=== PATIENT | female | born 1975 | race Caucasian/White ===

== ENCOUNTER 2018-01-28 19:44 | Emergency (ER) | payer OTHER ==
--- OUTSIDE RECORDS SUMMARY | 2018-01-28 19:55 | XMS REPORT ---
:1975 External Reference #:[id number] Author Organization [facility] Address [address] [place] [address] Phone [phone] Care Team Providers Name Role Phone Dominic Cain M.D. Care Team Information Content Strategist Unavailable Payers Type Date Identification Numbers Payment Provider Subscriber Commercial Policy Number: [id number] [employer] 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[employer] ETOH Use Rarely consumes alcohol Smoking 01/12/2018 Patient has never smoked Recreational Drug Use Denies Drug Use Daily Caffeine Consumes on average 1 cup of regular coffee per day Tattoo/Piercing Tattoo Sun Exposure 03/05/2015 Uses greater than 30 SPF Seat Belt/Car Seat Always uses seat belt Smoke Alarms Yes Smoke Alarms Carbon Monoxide Detector: Yes Allergies, Adverse Reactions, Alerts Date Description Reaction Status Severity Comments 08/13/2014 NKDA active Medications Medication Date Status Form Strength Qnty SIG Indications Ordering Provider Azithromycin 01/11 Active Tablets 250mg 6tabs Take two pills the first day and one pill every day after. Prednisone 01/11 Active Tablets 20mg 10tab Take 2 s tablets by mouth daily for 5 days Ventolin HFA 01/11 Active Aerosol 108(90Bas 1unit Inhale 2 e) s puffs into mcg/Act the lungs every 6 (six) hours as needed for Wheezing Xarelto 01/11 Active Tablets 15mg 42tab Take 1 s tablet by mouth Two Times Daily Ibuprofen 200 Active Tablets 200mg Take 600 mg Unknown /0000 by mouth every 6 (six) hours as needed for Pain Ciprofloxacin 03/25 Hx Tablets 500mg 10tab one tablet R19.7 Cain, s twice a day Dominic - for five Kalani Spencer Please Excuse 03/25 Hx due to R19.7 Cain, From Work For infectious Dominic 48 Hours. - diarrhea. Kalani Spencer 07/10 Xarelto 12/19 Hx Tablets 20mg 30tab take 1 I82.401 Cain, s tablet by Dominic - mouth daily Kalani Spencer 07/10 with food for blood clot in a deep vein May Return To 08/31 Hx no lifting 453.40 Ant, Work. >15 pounds. Dominic - light duty Kalani Spencer 03/25 until 03/06/15. Anusol-HC 08/16 Hx Suppository 25mg 30uni [address] of 569.3 ts rectum Lula Barth - three times PAEDIATRIC THORACIC PHYSICIAN-C 01/12 a day as needed Please Excuse 08/13 Hx 453.40 Cain, From Work Until Dominic 09/03/14. - Kalani Spencer 08/14 Coumadin 08/10 Hx Tablets 2mg 90tab 3 tablets 453.40 Cain, s by mouth Dominic - daily for Kalani Spencer 01/04 Colace 08/10 Hx Capsules 100mg 60cap 1 by mouth Cain, s twice a day Dominic Spencer M.D. 01/12 Hydrocodone Hx Tablets 5-300mg as needed Unknown Bitartrate/Acet /0000 aminophen - 08/31 Iron Hx Tablets 325(65Fe) 1 by mouth Unknown /0000 mg every day - 01/12 Pre-Casper Hx Tablets 1 by mouth Unknown Formula /0000 every day - 01/04 Aspirin Low 00 Hx Tablets 81mg Unknown Dose /0000 - 01/12 Vital Signs Date Vital Result Comment 01/12/2018 Weight 266.00 lb BP Systolic 110 mmHg BP Diastolic 60 mmHg Body Temperature 98.0 F Height 65 inches 5'5" BMI (Body Mass Index) 44.3 kg/m2 03/25/2015 Weight 245.00 lb BP Systolic 138 mmHg BP Diastolic 88 mmHg Body Temperature 98.0 F Height 65 inches 5'5" BMI (Body Mass Index) 40.8 kg/m2 01/04/2015 Weight 230.00 lb BP Systolic 126 mmHg BP Diastolic 80 mmHg Body Temperature 98.3 F Height 65 inches 5'5" BMI (Body Mass Index) 38.3 kg/m2 10/31/2014 Weight 208.00 lb BP Systolic 130 mmHg BP Diastolic 70 mmHg Body Temperature 98.5 F Height 65 inches 5'5" BMI (Body Mass Index) 34.6 kg/m2 09/24/2014 Weight 197.00 lb BP Systolic 110 mmHg BP Diastolic 70 mmHg Body Temperature 98.0 F Height 65 inches 5'5" BMI (Body Mass Index) 32.8 kg/m2 08/31/2014 Weight 193.00 lb BP Systolic 100 mmHg BP Diastolic 68 mmHg Body Temperature 98.1 F Height 65 inches 5'5" BMI (Body Mass Index) 32.1 kg/m2 08/16/2014 Weight 198.50 lb BP Systolic 92 mmHg BP Diastolic 70 mmHg Body Temperature 97.5 F Height 65 inches 5'5" Heart Rate 76 /min BMI (Body Mass Index) 33.0 kg/m2 4 Parity 3 08/13/2014 Weight 198.00 lb BP Systolic 124 mmHg BP Diastolic 80 mmHg Body Temperature 97.8 F Height 65 inches 5'5" BMI (Body Mass Index) 32.9 kg/m2 Results Test Date Test Result H/L Range Note Urinalysis 11/27/2016 Color YELLOW Appearance CLOUDY Spec Grav Urine 1.020 (1.003-1.030) PH Urine 6.5 (5.0-7.5) Leuk Esterase NEGATIVE (Neg) Nitrite Urine POSITIVE (Neg) Protein Urine NEGATIVE (Neg) Glucose Urine NEGATIVE (Neg) Ketone Urine NEGATIVE (Neg) Urobilinogen 1.0 mg/dL (0-1.0) Bilirubin Urine NEGATIVE (Neg) Blood/HGB Urine NEGATIVE (Neg) Urine Micro Only 11/27/2016 Urine WBC 0-2 [HPF] (0-5) Urine RBC 0-2 [HPF] (0-2) Epithelial Cells 2+ [HPF] Bacteria 4+ [HPF] CBC With Diff 11/27/2016 WBC 9.9 10*3/uL (4.1-11.0) RBC 5.34 10*6/uL (4.00-5.40) HGB 14.5 g/dL (12.0-16.0) HCT 44.4 % (36.0-47.0) MCV 83.1 fL (80.0-95.0) MCH 27.1 pg (27.0-32.0) MCHC 32.6 g/dL (32.0-36.0) RDW 13.7 % (10.5-14.5) PLT 222 10*3/uL (150-450) MPV 9.6 fL (7.1-10.7) Neut % 58.8 % (35.0-75.0) Lymph % 28.4 % (16.0-52.0) [place]bert % 7.5 % (0.0-8.0) Eos % 4.8 % (0.0-5.0) Baso % 0.5 % (0.0-4.0) Neut # 5.8 10*3/uL (1.8-7.7) Lymph # 2.8 10*3/uL (1.2-4.8) [place] # 0.7 10*3/uL (0.0-0.8) Eos # 0.5 10*3/uL (0.0-0.5) Baso # 0.1 10*3/uL (0.0-0.2) Basic Metabolic Panel 11/27/2016 Sodium 142 mmol/L (136-145) Potassium 3.8 mmol/L (3.6-5.2) Chloride 104 mmol/L (100-108) Co2 27 mmol/L (22-31) Anion Gap 11 mmol/L (7-16) Urea Nitrogen 13 mg/dL (7-24) Creatinine 0.88 mg/dL (0.60-1.00) BUN/Creat Ratio 14.8 RATIO (10.0-20.0) Glucose 98 mg/dL (70-99) Calcium 9.2 mg/dL (8.4-10.2) GFR >60 ml/min/1.73m2 (>59) GFR ( Amer) >60 ml/min/1.73m2 (>59) GFR Interpretation <SEE NOTE> 1 Laboratory test finding 11/27/2016 Troponin I <0.06 ng/mL (0.00-0.10) 2 Poc Troponin 11/27/2016 Poc Ctni 0.00 ng/mL (0.00-0.10) 3 Laboratory test finding 07/10/2015 D-Dimer,Sensitive 0.23 mg/L (<0.50) Protime 12/18/2014 PT 15.0 s High (9.2-11.9) Inr 1.44 4 Protime 12/17/2014 PT 16.3 s High (9.2-11.9) 5 Inr 1.52 5, 6 Protime 12/11/2014 PT 11.8 s (9.2-11.9) Inr 1.11 7 Protime 12/03/2014 PT 9.9 s (9.2-11.9) 8 Inr 0.94 8, 9 Protime 11/20/2014 PT 10.9 s (9.2-11.9) Inr 1.03 10 Protime 11/14/2014 PT 72.1 s High (9.2-11.9) 11 Inr 6.55 High 11, 12 Protime 10/31/2014 PT 18.0 s High (9.2-11.9) 13 Inr 1.68 13, 14 Protime 10/17/2014 PT 20.7 s High (9.2-11.9) Inr 1.93 15 Protime 10/01/2014 PT 31.0 s High (9.2-11.9) 16 Inr 2.86 16, 17 Protime 09/17/2014 PT 20.0 s High (9.2-11.9) 18 Inr 1.86 18, 19 Protime 08/31/2014 PT 30.6 s High (9.2-11.9) 20 Inr 2.83 20, 21 Protime 08/27/2014 PT 27.4 s High (9.2-11.9) Inr 2.54 22 Protime 08/20/2014 PT 27.2 s High (9.2-11.9) 23 Inr 2.52 23, 24 Protime 08/16/2014 PT 31.4 s High (9.2-11.9) Inr 2.90 25 CBC With Diff 08/16/2014 WBC 9.3 10*3/uL (4.1-11.0) RBC 4.36 10*6/uL (4.00-5.40) HGB 10.9 g/dL Low (12.0-16.0) HCT 33.8 % Low (36.0-47.0) MCV 77.6 fL Low (80.0-95.0) MCH 24.9 pg Low (27.0-32.0) MCHC 32.1 g/dL (32.0-36.0) RDW 15.5 % High (10.5-14.5) PLT 484 10*3/uL High (150-450) MPV 8.3 fL (7.1-10.7) Neut % 57.1 % (35.0-75.0) Lymph % 29.8 % (16.0-52.0) [place] % 5.5 % (0.0-8.0) Eos % 6.7 % High (0.0-5.0) Baso % 0.9 % (0.0-4.0) Neut # 5.3 10*3/uL (1.8-7.7) Lymph # 2.8 10*3/uL (1.2-4.8) [place] # 0.5 10*3/uL (0.0-0.8) Eos # 0.6 10*3/uL High (0.0-0.5) Baso # 0.1 10*3/uL (0.0-0.2) Protime 08/13/2014 PT 30.7 s High (9.2-11.9) Inr 2.84 26 CMP 08/13/2014 Sodium 141 mmol/L (136-145) Potassium 4.7 mmol/L (3.6-5.2) Chloride 108 mmol/L (100-108) Co2 24 mmol/L (22-31) Anion Gap 9 mmol/L (7-16) Urea Nitrogen 15 mg/dL (7-24) Creatinine 0.8 mg/dL (0.6-1.0) BUN/Creat Ratio 18.8 RATIO (10.0-20.0) Glucose 69 mg/dL Low (70-99) Calcium 8.4 mg/dL (8.4-10.2) Total Protein 6.8 g/dL (6.4-8.2) Albumin 3.1 g/dL Low (3.5-4.6) Globulin 3.7 g/dL (2.7-4.3) Alb/Glob Ratio 0.8 RATIO Alkaline Phosphatase 394 U/L High (45-117) Bilirubin,Total 0.3 mg/dL (0.0-1.0) Ast (Sgot) 18 U/L (11-39) Alt (SGPT) 56 U/L (12-78) GFR 86 ml/min/1.73m2 (>59) GFR ( Amer) >90 ml/min/1.73m2 (>59) GFR Interpretation <SEE NOTE> 27 CBC With Diff 08/13/2014 WBC 10.5 10*3/uL (4.1-11.0) RBC 4.05 10*6/uL (4.00-5.40) HGB 10.3 g/dL Low (12.0-16.0) HCT 32.2 % Low (36.0-47.0) MCV 79.5 fL Low (80.0-95.0) MCH 25.6 pg Low (27.0-32.0) MCHC 32.2 g/dL (32.0-36.0) RDW 15.1 % High (10.5-14.5) PLT 437 10*3/uL (150-450) MPV 8.5 fL (7.1-10.7) Neut % 66.7 % (35.0-75.0) Lymph % 20.9 % (16.0-52.0) [place] % 5.8 % (0.0-8.0) Eos % 5.9 % High (0.0-5.0) Baso % 0.7 % (0.0-4.0) Neut # 7.0 10*3/uL (1.8-7.7) Lymph # 2.2 10*3/uL (1.2-4.8) [place] # 0.6 10*3/uL (0.0-0.8) Eos # 0.6 10*3/uL High (0.0-0.5) Baso # 0.1 10*3/uL (0.0-0.2) Protime 08/10/2014 PT 24.1 s High (9.2-11.9) Inr 2.24 28 1 NORMAL KIDNEY FUNCTION OR MILD DISEASE - GFR >OR=60 CHRONIC KIDNEY DISEASE - GFR 15 - 59 RENAL FAILURE - GFR <15 Est. GFR calculation based on the MDRD study equation, which assumes a steady state for creatinine. Est. GFR should not be used for medication dosing. 2 TROPONIN LEVELS TWO TIMES THE UPPER LIMIT OF NORMAL ARE MORE PREDICTIVE OF MYOCARDIAL INJURY THAN LESSER ELEVATIONS. ([facility] 361:9, 2009) 3 PERFORMED BY [facility] CLINICAL STAFF 4 SUGGESTED THERAPEUTIC RANGES USING INR FOR STABILIZED ANTICOAGULATED PATIENTS: STANDARD DOSE THERAPY INR 2.0-3.0 DVT, PE, PREVENT DVT OR EMBOLISM HIGH DOSE THERAPY INR 2.5-3.5 PREVENT EMBOLISM FROM MECHANICAL HEART VALVE 5 results given to patient. sent to [facility] ER for anticoagulation. worsening leg edema. records faxed to er. call to [facility] transfer service. 6 SUGGESTED THERAPEUTIC RANGES USING INR FOR STABILIZED ANTICOAGULATED PATIENTS: STANDARD DOSE THERAPY INR 2.0-3.0 DVT, PE, PREVENT DVT OR EMBOLISM HIGH DOSE THERAPY INR 2.5-3.5 PREVENT EMBOLISM FROM MECHANICAL HEART VALVE 7 SUGGESTED THERAPEUTIC RANGES USING INR FOR STABILIZED ANTICOAGULATED PATIENTS: STANDARD DOSE THERAPY INR 2.0-3.0 DVT, PE, PREVENT DVT OR EMBOLISM HIGH DOSE THERAPY INR 2.5-3.5 PREVENT EMBOLISM FROM MECHANICAL HEART VALVE 8 results given - inr low increased from 2mg to 6 mg qday. recheck one week. 9 SUGGESTED THERAPEUTIC RANGES USING INR FOR STABILIZED ANTICOAGULATED PATIENTS: STANDARD DOSE THERAPY INR 2.0-3.0 DVT, PE, PREVENT DVT OR EMBOLISM HIGH DOSE THERAPY INR 2.5-3.5 PREVENT EMBOLISM FROM MECHANICAL HEART VALVE 10 SUGGESTED THERAPEUTIC RANGES USING INR FOR STABILIZED ANTICOAGULATED PATIENTS: STANDARD DOSE THERAPY INR 2.0-3.0 DVT, PE, PREVENT DVT OR EMBOLISM HIGH DOSE THERAPY INR 2.5-3.5 PREVENT EMBOLISM FROM MECHANICAL HEART VALVE 11 called patient darryl harrell regarding INR. asked her to stop medication. and call back the office. 12 SUGGESTED THERAPEUTIC RANGES USING INR FOR STABILIZED ANTICOAGULATED PATIENTS: STANDARD DOSE THERAPY INR 2.0-3.0 DVT, PE, PREVENT DVT OR EMBOLISM HIGH DOSE THERAPY INR 2.5-3.5 PREVENT EMBOLISM FROM MECHANICAL HEART VALVE RESULT VERIFIED BY REPEAT TESTING. RESULT(S) CALLED TO AND READ BACK BY AUDREY AT [phone] ON 11/14/14 AT 1520 [place] [id number] 13 called left vm. will need to increase coumadin. 14 SUGGESTED THERAPEUTIC RANGES USING INR FOR STABILIZED ANTICOAGULATED PATIENTS: STANDARD DOSE THERAPY INR 2.0-3.0 DVT, PE, PREVENT DVT OR EMBOLISM HIGH DOSE THERAPY INR 2.5-3.5 PREVENT EMBOLISM FROM MECHANICAL HEART VALVE 15 SUGGESTED THERAPEUTIC RANGES USING INR FOR STABILIZED ANTICOAGULATED PATIENTS: STANDARD DOSE THERAPY INR 2.0-3.0 DVT, PE, PREVENT DVT OR EMBOLISM HIGH DOSE THERAPY INR 2.5-3.5 PREVENT EMBOLISM FROM MECHANICAL HEART VALVE 16 attempted to call. no answer left message. 17 SUGGESTED THERAPEUTIC RANGES USING INR FOR STABILIZED ANTICOAGULATED PATIENTS: STANDARD DOSE THERAPY INR 2.0-3.0 DVT, PE, PREVENT DVT OR EMBOLISM HIGH DOSE THERAPY INR 2.5-3.5 PREVENT EMBOLISM FROM MECHANICAL HEART VALVE 18 called cell, darryl harrell. increase coumadin. 19 SUGGESTED THERAPEUTIC RANGES USING INR FOR STABILIZED ANTICOAGULATED PATIENTS: STANDARD DOSE THERAPY INR 2.0-3.0 DVT, PE, PREVENT DVT OR EMBOLISM HIGH DOSE THERAPY INR 2.5-3.5 PREVENT EMBOLISM FROM MECHANICAL HEART VALVE 20 Patient told results were normal. 21 SUGGESTED THERAPEUTIC RANGES USING INR FOR STABILIZED ANTICOAGULATED PATIENTS: STANDARD DOSE THERAPY INR 2.0-3.0 DVT, PE, PREVENT DVT OR EMBOLISM HIGH DOSE THERAPY INR 2.5-3.5 PREVENT EMBOLISM FROM MECHANICAL HEART VALVE 22 SUGGESTED THERAPEUTIC RANGES USING INR FOR STABILIZED ANTICOAGULATED PATIENTS: STANDARD DOSE THERAPY INR 2.0-3.0 DVT, PE, PREVENT DVT OR EMBOLISM HIGH DOSE THERAPY INR 2.5-3.5 PREVENT EMBOLISM FROM MECHANICAL HEART VALVE 23 results given to patient. no signs of bleeding. 24 SUGGESTED THERAPEUTIC RANGES USING INR FOR STABILIZED ANTICOAGULATED PATIENTS: STANDARD DOSE THERAPY INR 2.0-3.0 DVT, PE, PREVENT DVT OR EMBOLISM HIGH DOSE THERAPY INR 2.5-3.5 PREVENT EMBOLISM FROM MECHANICAL HEART VALVE 25 SUGGESTED THERAPEUTIC RANGES USING INR FOR STABILIZED ANTICOAGULATED PATIENTS: STANDARD DOSE THERAPY INR 2.0-3.0 DVT, PE, PREVENT DVT OR EMBOLISM HIGH DOSE THERAPY INR 2.5-3.5 PREVENT EMBOLISM FROM MECHANICAL HEART VALVE 26 SUGGESTED THERAPEUTIC RANGES USING INR FOR STABILIZED ANTICOAGULATED PATIENTS: STANDARD DOSE THERAPY INR 2.0-3.0 DVT, PE, PREVENT DVT OR EMBOLISM HIGH DOSE THERAPY INR 2.5-3.5 PREVENT EMBOLISM FROM MECHANICAL HEART VALVE 27 NORMAL KIDNEY FUNCTION OR MILD DISEASE - GFR >OR=60 CHRONIC KIDNEY DISEASE - GFR 15 - 59 RENAL FAILURE - GFR <15 Est. GFR calculation based on the MDRD study equation, which assumes a steady state for creatinine. Est. GFR should not be used for medication dosing. 28 SUGGESTED THERAPEUTIC RANGES USING INR FOR STABILIZED ANTICOAGULATED PATIENTS: STANDARD DOSE THERAPY INR 2.0-3.0 DVT, PE, PREVENT DVT OR EMBOLISM HIGH DOSE THERAPY INR 2.5-3.5 PREVENT EMBOLISM FROM MECHANICAL HEART VALVE Procedures Date CPT Code Description Status 01/12/2018 Mammogram Completed Encounters Type Date Location Provider CPT E/M Dx Office Visit 01/12/2018 4:30p Main Office ELKIN Gregg 93585 I82.401 J15.8 E66.9 I87.2 Office Visit 03/25/2015 3:00p Main Office [place] 33602 R19.7 I82.402 Office Visit 01/04/2015 10:10a Main Office Vonnie Ortez MPA 88968 453.40 Office Visit 10/31/2014 4:00p Main Office Vonnie Ortez MPA 93569 453.40 Office Visit 09/24/2014 2:30p Main Office Vonnie Ortez MPA 82158 453.40 Office Visit 08/31/2014 11:00a Main Office Vonnie Ortez MPA 56543 453.40 Office Visit 08/13/2014 10:30a Main Office Vonnie Ortez MPA 04653 453.40 Plan of Care Future Appointment(s):01/24/2018 3:00 pm - Vonnie Ortez MPA at Main [facility]01/12/2018 - Alana Lazo Emrejesse, PAI82.401 Acute embolism and thombos unsp deep veins of r low extremComments:on the 01 of February we will start xarelto 20mg once daily.J15.8 Pneumonia due to other specified bacteriaFollow up :1-2 weeks.E66.9 Obesity, unspecifiedComments:Please eat a healthy diet and drink plenty of fluids. Exercise for 30 minutes each day. Walking is great, goal is 10,000 steps. Most phones have a pedometer built in. Please only drink water. Eat as many fruits and vegetables as you want. Moderate amount of whole grains. Limit red meat and reduce animal products. The best thing to do is keep a food diary. [employer] App is a free sylvie that is helpful to do this.I87.2 Venous insufficiency (chronic) (peripheral)Comments:Advised to wear compression stocking as she is on her feet at both of her jobs.
--- OUTSIDE RECORDS SUMMARY | 2018-01-28 19:55 | XMS REPORT ---
:1975 External Reference #:[id number] Author Organization [facility] Address [address] [place] [address] Phone [phone] Care Team Providers Name Role Phone Dominic Cain M.D. 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 Family History Date Family Member(s) Problem(s) Comments General No Current Problems Social History Type Date Description Comments Marital Status Legal Status: Lives With Significant Other Lives With Son Lives With Daughters 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 Prednisone 01/11 Hx Tablets 20mg 10tab Take 2 s tablets by - mouth daily 01/24 for 5 days Ciprofloxacin 03/25 Hx Tablets 500mg 10tab one [...] Return To 08/31 Hx no lifting 453.40 Cain, Work. >15 pounds. Dominic - light duty Kalani Spencer 03/25 until 03/06/15. Anusol-HC 08/16 Hx Suppository 25mg 30uni [address] of 569.3 ts rectum Lula B. - three times DIETETIC TECHNICIAN-C 01/12 a day needed Please Excuse 08/13 Hx 453.40 Cain, From Work Until Dominic 09/03/14. - Kalani Spencer 08/14 Coumadin 08/10 Hx Tablets 2mg 90tab 3 tablets 453.40 Cain, s by mouth Dominic - daily asia Spencer M.D. 01/04 Colace 08/10 Hx Capsules 100mg 60cap 1 by mouth Cain, s twice a day Dominic Spencer M.D. 01/12 Hydrocodone Hx Tablets 5-300mg as needed Unknown Bitartrate/Acet /0000 aminophen - 08/31 Iron Hx Tablets 325(65Fe) 1 by mouth Unknown /0000 mg every day - 01/12 Pre- 00/00 Hx Tablets 1 by mouth Unknown Formula /0000 every day - 01/04 Aspirin Low 00 Hx Tablets 81mg Unknown Dose /0000 - 01/12 Ibuprofen 200 0000 Hx Tablets 200mg Take 600 mg Unknown /0000 by mouth - every 6 01/24 (six) hours /2017 as needed for Pain Vital Signs Date Vital Result Comment 01/24/2018 Weight 267.00 lb BP Systolic 110 mmHg BP Diastolic 74 mmHg Body Temperature 98.1 F Height 65 inches 5'5" BMI (Body Mass Index) 44.4 kg/m2 01/12/2018 Weight 266.00 lb BP Systolic 110 [...] Test Date Test Result H/L Range Note Poc Troponin 11/27/2016 Poc Ctni 0.00 ng/mL (0.00-0.10) 1 Laboratory test finding 11/27/2016 Troponin I <0.06 ng/mL (0.00-0.10) 2 Basic Metabolic Panel 11/27/2016 Sodium 142 mmol/L (136-145) Potassium 3.8 mmol/L (3.6-5.2) Chloride 104 mmol/L (100-108) Co2 27 mmol/L (22-31) Anion Gap 11 mmol/L (7-16) Urea Nitrogen 13 mg/dL (7-24) Creatinine 0.88 mg/dL (0.60-1.00) BUN/Creat Ratio 14.8 RATIO (10.0-20.0) Glucose 98 mg/dL (70-99) Calcium 9.2 mg/dL (8.4-10.2) GFR >60 ml/min/1.73m2 (>59) GFR ( Amer) >60 ml/min/1.73m2 (>59) GFR Interpretation <SEE NOTE> 3 CBC With Diff 11/27/2016 WBC 9.9 10*3/uL (4.1-11.0) RBC 5.34 10*6/uL (4.00-5.40) HGB 14.5 g/dL (12.0-16.0) HCT 44.4 % (36.0-47.0) MCV 83.1 fL (80.0-95.0) MCH 27.1 pg (27.0-32.0) MCHC 32.6 g/dL (32.0-36.0) RDW 13.7 % (10.5-14.5) PLT 222 10*3/uL (150-450) MPV 9.6 fL (7.1-10.7) Neut % 58.8 % (35.0-75.0) Lymph % 28.4 % (16.0-52.0) [place] % 7.5 % (0.0-8.0) Eos % 4.8 % (0.0-5.0) Baso % 0.5 % (0.0-4.0) Neut # 5.8 10*3/uL (1.8-7.7) Lymph # 2.8 10*3/uL (1.2-4.8) [place] # 0.7 10*3/uL (0.0-0.8) Eos # 0.5 10*3/uL (0.0-0.5) Baso # 0.1 10*3/uL (0.0-0.2) Urine Micro Only 11/27/2016 Urine WBC 0-2 [HPF] (0-5) Urine RBC 0-2 [HPF] (0-2) Epithelial Cells 2+ [HPF] Bacteria 4+ [HPF] Urinalysis 11/27/2016 Color YELLOW Appearance CLOUDY Spec Grav Urine 1.020 (1.003-1.030) PH Urine 6.5 (5.0-7.5) Leuk Esterase NEGATIVE (Neg) Nitrite Urine POSITIVE (Neg) Protein Urine NEGATIVE (Neg) Glucose Urine NEGATIVE (Neg) Ketone Urine NEGATIVE (Neg) Urobilinogen 1.0 mg/dL (0-1.0) Bilirubin Urine NEGATIVE (Neg) Blood/HGB Urine NEGATIVE (Neg) Laboratory test finding 07/10/2015 D-Dimer,Sensitive 0.23 mg/L [...] % (35.0-75.0) Lymph % 29.8 % (16.0-52.0) [place] % 5.5 % (0.0-8.0) Eos % 6.7 % High (0.0-5.0) Baso % 0.9 % (0.0-4.0) Neut # 5.3 10*3/uL (1.8-7.7) Lymph # 2.8 10*3/uL (1.2-4.8) [place] # 0.5 10*3/uL (0.0-0.8) Eos # 0.6 [...] % (35.0-75.0) Lymph % 20.9 % (16.0-52.0) [place] % 5.8 % (0.0-8.0) Eos % 5.9 % High (0.0-5.0) Baso % 0.7 % (0.0-4.0) Neut # 7.0 10*3/uL (1.8-7.7) Lymph # 2.2 10*3/uL (1.2-4.8) [place] # 0.6 10*3/uL (0.0-0.8) Eos # 0.6 10*3/uL High (0.0-0.5) Baso # 0.1 10*3/uL (0.0-0.2) Protime 08/10/2014 PT 24.1 s High (9.2-11.9) Inr 2.24 28 1 PERFORMED BY [facility] CLINICAL STAFF 2 TROPONIN LEVELS TWO TIMES THE UPPER LIMIT OF NORMAL ARE MORE PREDICTIVE OF MYOCARDIAL INJURY THAN LESSER ELEVATIONS. ([facility] 361:9, 2009) 3 NORMAL KIDNEY FUNCTION OR MILD DISEASE - GFR >OR=60 CHRONIC KIDNEY DISEASE - GFR 15 - 59 RENAL FAILURE - GFR <15 Est. GFR calculation based on the MDRD study equation, which assumes a steady state for creatinine. Est. GFR should not be used for medication dosing. 4 SUGGESTED THERAPEUTIC RANGES USING INR FOR STABILIZED ANTICOAGULATED PATIENTS: STANDARD DOSE THERAPY INR 2.0-3.0 DVT, PE, PREVENT DVT OR EMBOLISM HIGH DOSE THERAPY INR 2.5-3.5 PREVENT EMBOLISM FROM MECHANICAL HEART VALVE 5 results given to patient. sent to [facility] ER for anticoagulation. worsening leg edema. records faxed to er. call to [facility] transfer service. 6 SUGGESTED THERAPEUTIC RANGES USING [...] FROM MECHANICAL HEART VALVE 11 called patient na lm regarding INR. asked her to stop medication. and call back the office. 12 SUGGESTED THERAPEUTIC RANGES USING INR FOR STABILIZED ANTICOAGULATED PATIENTS: STANDARD DOSE THERAPY INR 2.0-3.0 DVT, PE, PREVENT DVT OR EMBOLISM HIGH DOSE THERAPY INR 2.5-3.5 PREVENT EMBOLISM FROM MECHANICAL HEART VALVE RESULT VERIFIED BY REPEAT TESTING. RESULT(S) CALLED TO AND READ BACK BY AUDREY AT [id number] ON 11/14/14 AT 4146 DH [id number] 13 called left vm. will need to [...] EMBOLISM FROM MECHANICAL HEART VALVE 18 called celldarryl lm. increase coumadin. 19 SUGGESTED THERAPEUTIC RANGES USING [...] Location Provider CPT E/M Dx Office Visit 01/24/2018 3:00p Main Office Vonnie Ortez [facility] 27076 J15.8 R19.7 E66.9 Office Visit 01/12/2018 4:30p Main Office ELKIN Gregg 95927 I82.401 J15.8 E66.9 I87.2 Office Visit 03/25/2015 3:00p Main Office Vonnie Ortez, AMANDA 10979 R19.7 I82.402 Office Visit 01/04/2015 10:10a Main Office Vonnie Ortez, AMANDA 00129 453.40 Office Visit 10/31/2014 4:00p Main Office Vonnie Ortez, AMANDA 43048 453.40 Office Visit 09/24/2014 2:30p Main Office Vonnie Ortez, AMANDA 82942 453.40 Office Visit 08/31/2014 11:00a Main Office Vonnie Ortez, AMANDA 71956 453.40 Office Visit 08/13/2014 10:30a Main Office Vonnie Ortez M[place] 86673 453.40 Plan of Care Future Appointment(s):03/21/2018 9:10 am - Nurse Schedule at Main [id number] 3:00 pm - Vonnie Ortez, MPA at Main [id number]/24/2018 - Vonnie Ortez, MPAJ15.8 Pneumonia due to other specified bacteriaNew Xrays:Chest, 2 ViewsMammography Screening, Bilateral; 2-View Each BreastFollow up:set up for pap this fall.R19.7 Diarrhea, unspecifiedNew Labs:Stool Panel ([facility] [place]) E66.9 Obesity, unspecified
--- OUTSIDE RECORDS SUMMARY | 2018-01-28 19:55 | XMS REPORT ---
:1975 External Reference #:[id number] Author Organization Formerly [facility] Address [address] [place] [address] Phone [phone] Care Team Providers Name Role Phone Dominic Cain M.D. 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 Family History Date Family Member(s) Problem(s) Comments General No Current Problems Social History Type Date Description Comments Marital Status Legal Status: Lives With Significant Other Lives With Son Lives With Daughters 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 >15 pounds. Dominic - light duty Kalani Spencer 03/25 until 03/06/15. 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 needed Please Excuse 08/13 [...] /0000 mg every day - 01/12 Pre- Hx Tablets 1 by mouth Unknown Formula /0000 every day - 01/04 Aspirin Low Hx Tablets 81mg Unknown Dose /0000 - 01/12 Vital Signs Date Vital Result Comment 01/24/2018 [...] % (35.0-75.0) Lymph % 28.4 % (16.0-52.0) [place] % 7.5 % (0.0-8.0) Eos % 4.8 % (0.0-5.0) Baso % 0.5 % (0.0-4.0) Neut # 5.8 10*3/uL (1.8-7.7) Lymph # 2.8 10*3/uL (1.2-4.8) [place] # 0.7 10*3/uL (0.0-0.8) Eos # 0.5 [...] % (35.0-75.0) Lymph % 29.8 % (16.0-52.0) [place] % 5.5 % (0.0-8.0) Eos % 6.7 % High (0.0-5.0) Baso % 0.9 % (0.0-4.0) Neut # 5.3 10*3/uL (1.8-7.7) Lymph # 2.8 10*3/uL (1.2-4.8) [place] # 0.5 10*3/uL (0.0-0.8) Eos # 0.6 [...] % (35.0-75.0) Lymph % 20.9 % (16.0-52.0) [place] % 5.8 % (0.0-8.0) Eos % 5.9 % High (0.0-5.0) Baso % 0.7 % (0.0-4.0) Neut # 7.0 10*3/uL (1.8-7.7) Lymph # 2.2 10*3/uL (1.2-4.8) [place] # 0.6 10*3/uL (0.0-0.8) Eos # 0.6 [...] PREDICTIVE OF MYOCARDIAL INJURY THAN LESSER ELEVATIONS. ([facility] 361:9, 2009) 3 PERFORMED BY [facility] CLINICAL STAFF 4 SUGGESTED THERAPEUTIC RANGES USING INR FOR STABILIZED ANTICOAGULATED PATIENTS: STANDARD DOSE THERAPY INR 2.0-3.0 DVT, PE, PREVENT DVT OR EMBOLISM HIGH DOSE THERAPY INR 2.5-3.5 PREVENT EMBOLISM FROM MECHANICAL HEART VALVE 5 results given to patient. sent to [facility] ER for anticoagulation. worsening leg edema. records faxed to er. call to [facility] transfer service. 6 SUGGESTED THERAPEUTIC RANGES USING [...] TO AND READ BACK BY AUDREY AT [phone] ON 11/14/14 AT 5865 BY 19473 13 called left vm. will need to [...] Visit 01/12/2018 4:30p Main Office ELKIN Gregg 69423 I82.401 J15.8 E66.9 I87.2 Office Visit 03/25/2015 3:00p Main Office Vonnie Ortez, [facility] 96268 R19.7 I82.402 Office Visit 01/04/2015 10:10a Main Office Vonnie Ortez MPA 49010 453.40 Office Visit 10/31/2014 4:00p Main Office Vonnie Ortez, AMANDA 29851 453.40 Office Visit 09/24/2014 2:30p Main Office Vonnie Ortez MPA 78536 453.40 Office Visit 08/31/2014 11:00a Main Office Vonnie Ortez MPA 60260 453.40 Office Visit 08/13/2014 10:30a Main Office Vonnie Ortez MPA 39618 453.40 Plan of Care No Information Available
[2018-01-28 20:01] VITALS: BP 138/71
[2018-01-28] MEDS ORDERED: Amoxicillin/Clavulanate TAB* 875 MG PO ONE (20:11)
--- NOTE | 2018-01-28 20:16 | UC ---
Dental HPI - HPI Summary HPI Summary: Patient states that she has a dental cavity on her lower right jaw. Yesterday he started experiencing pain and swelling on her cheek. Denies chills or fever. Denies problems swallowing. - History of Current Complaint Chief Complaint: UCDentalProblem Stated Complaint: DENTAL Time Seen by Provider: 01/28/18 20:04 Hx Obtained From: Patient Hx Last Menstrual Period: 2 wks ?: No Onset/Duration: Sudden Onset, Lasting Days Severity: Severe Pain Intensity: 10 Aggravating Factor(s): Chewing Alleviating Factor(s): Nothing Related History: Previous Dental Care on Same Tooth - Allergies/Home Medications Allergies/Adverse Reactions: Allergies Allergy/AdvReac Type Severity Reaction Status Date / Time No Known Allergies Allergy Verified 01/28/18 19:54 Home Medications: Home Medications Rivaroxaban TAB(*) [Xarelto 20 mg] 20 mg PO DAILY 01/28/18 [History Confirmed ] PMH/Surg Hx/FS Hx/Imm Hx Cardiovascular History: Deep Vein Thrombosis Other History Of: Anticoagulant Therapy - Surgical History Surgical History: Yes Surgery Procedure, Year, and Place: x 1 - Family History Known Family History: Positive: None - Social History Alcohol Use: None Substance Use Type: None Smoking Status (MU): Never Smoked Tobacco Review of Systems Constitutional: Negative Skin: Negative Eyes: Negative ENT: Negative, Other - dental pain Respiratory: Negative Gastrointestinal: Negative Genitourinary: Negative Motor: Negative Neurovascular: Negative Musculoskeletal: Negative Neurological: Negative Psychological: Negative All Other Systems Reviewed And Are Negative: Yes Physical Exam Triage Information Reviewed: Yes Appearance: Well-Appearing, No Pain Distress, Well-Nourished Vital Signs: Initial Vital Signs Temp 98.2 F 01/28/18 19:57 Pulse 94 01/28/18 19:57 Resp 16 01/28/18 19:57 BP 138/71 01/28/18 19:57 Pulse Ox 99 01/28/18 19:57 Vital Signs Reviewed: Yes Eyes: Positive: Conjunctiva Clear ENT: Positive: Hearing grossly normal, Dental tenderness, Other - soft tissue swelling without fluctuation on right mandible . Cervical LNE Dental Complaint Course/Dx - Course Course Of Treatment: The patient has dental sepsis. Start Augmentin as prescribed twice a day for 7 days. Follow-up with dental as soon as possible. - Differential Dx/Diagnosis Provider Diagnoses: Dental abscess Discharge - Sign-Out/Discharge Documenting (check all that apply): Patient Departure All imaging exams completed and their final reports reviewed: No Studies - Discharge Plan Condition: Stable Disposition: HOME Prescriptions: Amoxicillin/Clavulanate TAB* [Augmentin TAB 875*] 875 mg PO BID 7 Days #14 tab Patient Education Materials: Dental Abscess (ED), Amoxicillin/Clavulanate Potassium (By mouth) Referrals: Ant SAAVEDRA,Dominic Spencer [Primary Care Provider] - Additional Instructions: Please follow-up with your dentist as soon as possible. Take the antibiotic for the full course as prescribed twice a day. - Billing Disposition and Condition Condition: STABLE Disposition: Home
== END 2018-01-28 20:18 | disposition home or self-care (01) ==
LOC: UCCORT 19:44
DX: K04.7 Periapical abscess without sinus (principal); I82.509 Chronic embolism and thrombosis of unspecified deep veins of unspecified lower extremity; Z79.01 Long term (current) use of anticoagulants
CPT/HCPCS: 99202; A9270-GY; G0463

== ENCOUNTER 2018-07-28 18:35 | Emergency (ER) | payer OTHER ==
[2018-07-28 19:39] VITALS: BP 139/83
[2018-07-28 19:51] LABS: Influenza A Molecular POSITIVE (Negative)
--- NOTE | 2018-07-28 20:04 | UC ---
FLU HPI - HPI Summary HPI Summary: 43-year-old female presents with sudden onset of fever, chills, malaise, fatigue , nasal congestion, sore throat, and nonproductive cough last evening. She also reports she's had one episode of diarrhea today. Denies ear pain, dysphagia, chest pain, shortness of breath, abdominal pain, nausea, or vomiting. - History of Current Complaint Chief Complaint: UCGeneralIllness Stated Complaint: FEVER, CHILLS, BODY ACHES Time Seen by Provider: 07/28/18 19:32 Hx Last Menstrual Period: 07/09/18 Pain Intensity: 1 - Allergy/Home Medications Allergies/Adverse Reactions: Allergies Allergy/AdvReac Type Severity Reaction Status Date / Time No Known Allergies Allergy Verified 07/28/18 19:33 Home Medications: Home Medications Ibuprofen 400 mg PO ONCE 07/28/18 [History Confirmed 07/28/18] PMH/Surg Hx/FS Hx/Imm Hx - Additional Past Medical History Additional PMH: DVT Previously Healthy: Yes - Surgical History Surgical History: Yes Surgery Procedure, Year, and Place: x 1 - Family History Known Family History: Positive: Non-Contributory - Social History Occupation: Employed Full-time Lives: With Family Alcohol Use: None Substance Use Type: None Smoking Status (MU): Never Smoked Tobacco - Immunization History Vaccination Up to Date: Yes Review of Systems All Other Systems Reviewed And Are Negative: Yes Constitutional: Positive: Fever, Chills Skin: Negative: Rash Eyes: Negative: Drainage, Eye Redness ENT: Positive: Sore Throat, Nasal Discharge, Sinus Congestion. Negative: Ear Ache, Sinus Pain/Tenderness Respiratory: Positive: Cough. Negative: Shortness Of Breath Cardiovascular: Negative: Palpitations, Chest Pain Gastrointestinal: Negative: Abdominal Pain, Vomiting, Diarrhea, Nausea Genitourinary: Positive: Negative Musculoskeletal: Positive: Negative Neurological: Positive: Negative Physical Exam - Summary Physical Exam Summary: GENERAL APPEARANCE: Well developed, well nourished, alert and cooperative, and appears to be in no acute distress. EYES: Conjunctiva clear. No drainage. Vision is grossly intact. EARS: External auditory canals and tympanic membranes clear, hearing grossly intact. NOSE: Mild-moderate nasal discharge. No nasal discharge. THROAT: Pharyngeal erythema without tonsilar inflammation, swelling, exudate, or lesions. Uvula midline. Oral cavity normal. Teeth and gingiva in good general condition. NECK: Neck supple, non-tender without lymphadenopathy. CARDIAC: Normal S1 and S2. No S3, S4 or murmurs. Rhythm is regular. There is no peripheral edema, cyanosis or pallor. Extremities are warm and well perfused. Capillary refill is less than 2 seconds. Peripheral pulses intact. LUNGS: Clear to auscultation without rales, rhonchi, wheezing or diminished breath sounds. Non-productive cough. ABDOMEN: Positive bowel sounds. Soft, nondistended, nontender. No guarding or rebound. No masses or hepatosplenomegally. MUSKULOSKELETAL: ROM intact to all extremities. No joint erythema or tenderness. Normal muscular development. Normal gait. SKIN: Skin normal color, texture and turgor with no lesions or eruptions. Triage Information Reviewed: Yes Vital Signs: Initial Vital Signs Temp 96.3 F 07/28/18 19:34 Pulse 86 07/28/18 19:34 Resp 22 07/28/18 19:34 BP 139/83 07/28/18 19:34 Pulse Ox 100 07/28/18 19:34 Vital Signs Reviewed: Yes Diagnostics - Laboratory Diagnostic Studies Completed/Ordered: Rapid flu positive for influenza A Flu Course/Dx - Course Course Of Treatment: 43-year-old female presents with sudden onset of fever, chills, malaise, fatigue, nasal congestion, sore throat, and nonproductive cough last evening. She also reports she's had one episode of diarrhea today. Denies ear pain, dysphagia, chest pain, shortness of breath, abdominal pain, nausea, or vomiting. Afebrile. Vital signs stable. Exam reveals an adult female in no acute distress with mild nasal congestion, mild pharyngeal erythema without tonsillar swelling or exudate, clear bilateral breath sounds, nonproductive cough, and otherwise unremarkable exam. Rapid flu test was positive for influenza A. I discussed the risks and benefits of starting Tamiflu and patient is electing to begin at this time. I have prescribed her Tamiflu 75 mg twice a day 10 days as well as recommending symptomatic treatment including Tessalon Perles 1 Every 8 hours as needed for cough. She is to return here or follow-up with a primary care provider in 7 days if symptoms do not improve. Anticipatory guidance and warning symptoms were reviewed with the patient. Verbalized understanding of this plan of care. - Differential Dx/Diagnosis Differential Diagnosis/HQI/PQRI: Bronchitis, Influenza, Pneumonia, Upper Respiratory Infection Provider Diagnosis: Influenza A Discharge - Sign-Out/Discharge Documenting (check all that apply): Patient Departure All imaging exams completed and their final reports reviewed: No Studies - Discharge Plan Condition: Stable Disposition: HOME Prescriptions: Benzonatate CAP* [Tessalon 100 MG CAP*] 100 mg PO TID PRN #30 cap PRN Reason: Cough Oseltamivir CAP* [Tamiflu CAP*] 75 mg PO BID #10 cap Patient Education Materials: Influenza (ED) Forms: *Work Release Referrals: Ant SAAVEDRA,Dominic Spencer [Primary Care Provider] - Additional Instructions: Your flu test in the clinic today was positive for influenza A. Start Tamiflu 1 capsule twice a day for 5 days. Get plenty of rest. Drink plenty of fluids to avoid dehydration especially if you are running any fever. Take over the counter acetaminophen (Tylenol) or ibuprofen (Advil, Motrin) according to directions as needed for pain or fever. Take Tessalon Perles 1 cap every 8 hours as needed for cough. Use salt water gargles several times a day if you have a sore throat. You may also use Chloraseptic spray or Cepacol lonzenges according to directions which contain a numbing medication and can provide some temporary relief from your sore throat. Follow up with your primary care provider in 7 days if symptoms persist. Seek immediate medical attention in the emergency room if you have fever greater than 100.5 F despite taking acetaminophen or ibuprofen, have chest pain , difficulty breathing, are unable to swallow, or have any worsening of symptoms. - Billing Disposition and Condition Condition: STABLE Disposition: Home
== END 2018-07-28 20:10 | disposition home or self-care (01) ==
LOC: UCCORT 18:35
DX: J10.1 Influenza due to other identified influenza virus with other respiratory manifestations (principal); R19.7 Diarrhea, unspecified
CPT/HCPCS: 99212; G0463